=== PATIENT | female | born 1945 | race Caucasian/White ===

== ENCOUNTER 2016-05-21 09:38 | Day surgery (SDC) | payer MEDICARE ==
[2016-05-19 12:35] VITALS: BMI 21.6
[~2016-05-21 09:38] MED LIST: LACTATED RINGERS 1,000 ML IV SCH; LIDOCAINE 1% 20 ML VIAL (10MG/ML) FOR IV START INTRADERMA PRN
[2016-05-21 09:53] VITALS: RESP 16; TEMP 98.6
[2016-05-21] MEDS ORDERED: LIDOCAINE 1% INJ 10MG/ML (20 ML MDV) ONE (09:53)
[2016-05-21] MEDS ORDERED: PROPOFOL 10 MG/ML 20 ML VIAL IV ONE (09:53)
--- NOTE | 2016-05-21 10:10 | P.PCN ---
Date of Procedure: 05/21/16 Procedure(s) Performed: BRIEF HISTORY: Patient is a 68-year-old, pleasant, white female, scheduled for an upper endoscopy with a pyloric dilation for symptomatic pyloric stenosis. Her last upper endoscopy dilation was performed in December 2015. Lately she is been having abdominal bloating, early satiety but no nausea vomiting. PROCEDURE PERFORMED: Esophagogastroduodenoscopy with pyloric dilation. PREOPERATIVE DIAGNOSIS: Symptomatic pyloric stenosis. IV sedation per anesthesia. PROCEDURE: After informed consent was obtained, the patient was brought into the endoscopy unit. IV conscious sedation was administered by Anesthesia under continuous monitoring. Initially the Olympus GIF-140 video endoscope was inserted into the mouth. Esophagus intubated without any difficulty. It was gradually advanced into the stomach and carefully examined. There was tight pyloric stenosis noted and the scope could not be advanced to this area. At this time I used a 10-12 mm pyloric balloon and was gently advanced through the pylorus or the guidewire and initially was dilated to 10 mm and sequentially to 11 mm and up to 12 mm for total of 1-1/2 minutes. Following this there was some oozing with mucosal tear identified at the site of dilation. Despite this I was not able to advance the scope into the duodenum. However the bulb of the duodenum could be visualized and appeared normal. The scope at this time was withdrawn to the stomach, adequately insufflated with air, and upon careful examination, mucosa of the antrum, body, cardia and the fundus appeared normal. The scope was then withdrawn into the esophagus. Small hiatal hernia noted The GE junction was located at 39 cm from the incisors. The esophagus appeared normal. There were no erosions or ulcerations seen and the patient tolerated the procedure well. IMPRESSION: 1. Tight pyloric stenosis status post balloon dilation using an 11 and 12 mm TTS balloon as. 2. Small hiatal hernia. RECOMMENDATIONS: The findings of this examination were discussed with the patient as well as a family. She will be on a clear liquid diet today, continue Prilosec 20 mg twice daily and she'll be seen in the office in 6 months.
[2016-05-21] MEDS ORDERED: IV FLUID CONTINUATION 1,000 ML IV ONE (10:17)
[2016-05-21 10:55] VITALS: BP 157/59; PULSE 68
== END 2016-05-21 11:22 | disposition home or self-care (01) ==
LOC: ORWHC2ENDO 09:38
PROVIDERS: ATTEND Internal Medicine Gastroenterology
DX: K31.1 Adult hypertrophic pyloric stenosis (principal); K44.9 Diaphragmatic hernia without obstruction or gangrene; K21.9 Gastro-esophageal reflux disease without esophagitis; K27.9 Peptic ulcer, site unspecified, unspecified as acute or chronic, without hemorrhage or perforation; I10 Essential (primary) hypertension; E78.5 Hyperlipidemia, unspecified; Z79.899 Other long term (current) drug therapy; Z88.1 Allergy status to other antibiotic agents
CPT/HCPCS: 43245; J2001; J2704; C1727; 44799; 99153

== ENCOUNTER → 2016-05-27 | Outpatient (CLI) | payer MEDICARE ==
--- NOTE | 2016-05-28 11:51 | MM ---
Reason for exam: screening (asymptomatic). Last mammogram was performed 1 year ago. History: Patient is postmenopausal. Excisional biopsy of the right breast, 2001. Took estrogen for 11 years. Physical Findings: A clinical breast exam by your physician is recommended on an annual basis and results should be correlated with mammographic findings. MG Screening Mammo w CAD Bilateral CC and MLO view(s) were taken. Prior study comparison: May 23, 2015, bilateral MG screening mammo w CAD. May 12, 2014, bilateral MG screening mammo w CAD. The breast tissue is heterogeneously dense. This may lower the sensitivity of mammography. No significant changes when compared with prior studies. ASSESSMENT: Benign, BI-RAD 2 RECOMMENDATION: Routine screening mammogram of both breasts in 1 year.
== END | disposition home or self-care (01) ==
LOC: RADMAMWWP 12:31
PROVIDERS: ATTEND Internal Medicine
DX: Z12.31 Encounter for screening mammogram for malignant neoplasm of breast (principal)

== ENCOUNTER → 2016-10-15 | Outpatient (CLI) | payer MEDICARE ==
--- NOTE | 2016-10-15 14:04 | BD ---
EXAMINATION TYPE: MG DEXA axial skeleton. DATE OF EXAM: 10/15/2016 CLINICAL HISTORY: Disorder of bone density structure per order. COMPARISON: DEXA bone scan May 12, 2014. Height: 63.5 Weight: 132 pounds FRAX RISK QUESTIONS: Alcohol (3 or more units per day): no Family History (Parent hip fracture): no Glucocorticoids (More than 3mos): no (Ex: prednisone, prednisolone, methylprednisolone, dexamethasone, and hydrocortisone). History of Fracture in Adulthood: no Secondary Osteoporosis: 1. Type 1 Diabetes: no 2. Hyperthyroidism: no 3. Menopause before 45: no 4. Malnutrition: no 5. Chronic liver disease: no Rheumatoid Arthritis: no Current Tobacco Use: no RISK FACTORS HISTORY OF: Surgery to Spine: yes When: June 2016 Family History of Osteoporosis: no Drink Alcohol: once & a while Active: yes Diet low in dairy products/other sources of calcium: no Postmenopausal woman: yes, menopause/hysterectomy age 45 Take estrogen and/or progesterone medications: not now How long: about 11 years Lost more than 2 inches in height since high school: states that at one time was 66 inches tall Frequent falls: no Poor Health: no Hyperparathyroidism: no Adrenal Insufficiency: no MEDICATIONS: Prednisone or other steroids: no Thyroid Medications: no Osteoporosis Medications: no Additional Medications: cholesterol meds EXAM MEASUREMENTS: Bone mineral densitometry was performed using the [employer] System. Bone mineral density NOT measured about the Lumbar spine because of lower back surgery & presence o f metal kade Bone mineral density about the R hip (g/cm2): 0.882 Bone mineral density about the L hip (g/cm2): 0.850 T Score values are as follows: -----R Neck: -1.1 -----L Neck: -1.3 -----R Total: -0.7 -----L Total: -0.7 Bone mineral density has: Decreased -2.9% since study of: 05/12/2014 IMPRESSION: Osteopenia (T Score between -2.5 and -1 as noted by T score values at femoral neck in bilateral hips is now present. Bone density is decreased or diminished from prior. There remains slightly increase d risk of fracture and the patient may be considered for treatment. Re-Screen 2-5 years. NOTE: T-SCORE=SD OF THE YOUNG ADULT MEAN.
== END | disposition home or self-care (01) ==
LOC: RADBDWWP 12:40
PROVIDERS: ATTEND Internal Medicine
DX: M85.80 Other specified disorders of bone density and structure, unspecified site (principal)
CPT/HCPCS: 77080

== ENCOUNTER → 2017-06-08 | Outpatient (CLI) | payer MEDICARE ==
--- NOTE | 2017-06-10 07:38 | MM ---
Reason for exam: screening (asymptomatic). Last mammogram was performed 1 year ago. History: Patient is postmenopausal. Excisional biopsy of the right breast, 2001. Took estrogen for 11 years. Physical Findings: A clinical breast exam by your physician is recommended on an annual basis and results should be correlated with mammographic findings. MG Screening Mammo w CAD Bilateral CC and MLO view(s) were taken. Prior study comparison: May 27, 2016, bilateral MG screening mammo w CAD. May 23, 2015, bilateral MG screening mammo w CAD. The breast tissue is extremely dense which could obscure a lesion on mammography. Finding: There are typically benign diffuse/scattered calcifications in both breasts. No suspicious abnormality. ASSESSMENT: Benign, BI-RAD 2 RECOMMENDATION: Routine screening mammogram of both breasts in 1 year.
== END | disposition home or self-care (01) ==
LOC: RADMAMWWP 12:13
PROVIDERS: ATTEND Internal Medicine
DX: Z12.31 Encounter for screening mammogram for malignant neoplasm of breast (principal)
CPT/HCPCS: 77067

== ENCOUNTER → 2018-06-18 | Outpatient (CLI) | payer MEDICARE ==
--- NOTE | 2018-06-22 09:28 | MM ---
Reason for exam: screening (asymptomatic). Last mammogram was performed 1 year ago. History: Patient is postmenopausal. Excisional biopsy of the right breast, 2001. Took estrogen for 11 years. Physical Findings: A clinical breast exam by your physician is recommended on an annual basis and results should be correlated with mammographic findings. MG Screening Mammo w CAD Bilateral CC and MLO view(s) were taken. Prior study comparison: June 08, 2017, bilateral MG screening mammo w CAD. May 27, 2016, bilateral MG screening mammo w CAD. The breast tissue is heterogeneously dense. This may lower the sensitivity of mammography. Benign bilateral oil cysts. No significant changes when compared with prior studies. ASSESSMENT: Benign, BI-RAD 2 RECOMMENDATION: Routine screening mammogram of both breasts in 1 year.
== END | disposition home or self-care (01) ==
LOC: RADMAMWWP 12:59
PROVIDERS: ATTEND Internal Medicine
DX: Z12.31 Encounter for screening mammogram for malignant neoplasm of breast (principal)
CPT/HCPCS: 77067

== ENCOUNTER → 2019-06-23 | Outpatient (CLI) | payer MEDICARE ==
--- NOTE | 2019-06-27 10:27 | MM ---
Reason for exam: screening (asymptomatic). Last mammogram was performed 1 year ago. History: Patient is postmenopausal. Excisional biopsy of the right breast, 2001. Took estrogen for 11 years. Physical Findings: A clinical breast exam by your physician is recommended on an annual basis and results should be correlated with mammographic findings. MG Screening Mammo w CAD Bilateral CC and MLO view(s) were taken. Prior study comparison: June 18, 2018, bilateral MG screening mammo w CAD. June 08, 2017, bilateral MG screening mammo w CAD. The breast tissue is extremely dense which could obscure a lesion on mammography. No significant changes when compared with prior studies. ASSESSMENT: Benign, BI-RAD 2 RECOMMENDATION: Routine screening mammogram of both breasts in 1 year.
== END | disposition home or self-care (01) ==
LOC: RADMAMWWP 13:13
PROVIDERS: ATTEND Internal Medicine
DX: Z12.31 Encounter for screening mammogram for malignant neoplasm of breast (principal)
CPT/HCPCS: 77067

== ENCOUNTER → 2020-08-21 | Outpatient (CLI) | payer MEDICARE ==
--- NOTE | 2020-08-21 17:44 | BD ---
EXAMINATION TYPE: Axial Bone Density DATE OF EXAM: 08/21/2020 COMPARISON: 10/15/2016 CLINICAL HISTORY: Postmenopausal screening Height: 5 FT 4 IN Weight: 133 FRAX RISK QUESTIONS: Alcohol (3 or more units per day): NO Family History (Parent hip fracture): NO Glucocorticoids (More than 3mos): NO (Ex: prednisone, prednisolone, methylprednisolone, dexamethasone, and hydrocortisone). History of Fracture in Adulthood: NO Secondary Osteoporosis: 1. Type 1 Diabetes: NO 2. Hyperthyroidism: NO 3. Menopause before 45: NO 4. Malnutrition: NO 5. Chronic liver disease: NO Rheumatoid Arthritis: NO Current Tobacco Use: NO RISK FACTORS HISTORY OF: Surgery to Spine/Hip(right/left)/Wrist (right/left): LUMBAR SURG When: 2017 Family History of Osteoporosis: NO Active: YES Diet low in dairy products/other sources of calcium: NO Postmenopausal woman: AGE 45 Take estrogen and/or progesterone medications: TOOK HRT FOR A SHORT TIME AFTER HYST Lost more than 2 inches in height since high school: NO MEDICATIONS: Additional Medications: IRON, VIT D, OCUVITE, BABY ASPIRIN, HYDRALAZINE, ATENOLOL, LOSARTAN, OMEPRAZO LE, SIMVASTATIN Additional History: EXAM MEASUREMENTS: Bone mineral density about the R hip (g/cm2): 0.937 Bone mineral density about the L hip (g/cm2): 0.821 T Score values are as follows: -----R Neck: -0.7 -----L Neck: -1.6 -----R Total: -0.5 -----L Total: -1.0 Bone mineral density has: NO CHANGE % since study of: 2016 Bone mineral density about the L Wrist (g/cm2): 0.587 T Score values are as follows: -----Dist. R+U: -2.0 -----Prox. R+U: -0.8 -----Radius total: -1.5 FIRST TIME WRIST HAS BEEN DONE IMPRESSION: Osteopenia (T Score between -2.5 and -1). There is slightly increased risk of fracture and the patient may be considered for treatment. Re-Screen 2-5 years. NOTE: T-SCORE=SD OF THE YOUNG ADULT MEAN.
--- NOTE | 2020-08-22 09:25 | MM ---
Reason for exam: screening (asymptomatic). Last mammogram was performed 1 year and 2 months ago. History: Patient is postmenopausal. Excisional biopsy of the right breast, 2001. Took estrogen for 11 years. Physical Findings: A clinical breast exam by your physician is recommended on an annual basis and results should be correlated with mammographic findings. MG 3D Screening Mammo W/Cad Bilateral CC and MLO view(s) were taken. Prior study comparison: June 23, 2019, bilateral MG screening mammo w CAD. June 18, 2018, bilateral MG screening mammo w CAD. The breast tissue is extremely dense which could obscure a lesion on mammography. Stable benign calcifications. There is no discrete abnormality. No significant changes when compared with prior studies. ASSESSMENT: Benign, BI-RAD 2 RECOMMENDATION: Routine screening mammogram of both breasts in 1 year.
== END | disposition home or self-care (01) ==
LOC: RADMAMWWP 15:03
PROVIDERS: ATTEND Internal Medicine
DX: Z12.31 Encounter for screening mammogram for malignant neoplasm of breast (principal); M85.80 Other specified disorders of bone density and structure, unspecified site; Z78.0 Asymptomatic menopausal state
CPT/HCPCS: 77063; 77067; 77080

== ENCOUNTER 2023-12-25 10:00 | Day surgery (SDC) | payer MEDICARE ==
[2023-12-25] MEDS ORDERED: LACTATED RINGERS 1,000 ML BAG ONE (11:40)
[2023-12-25] MEDS ORDERED: PROPOFOL 10 MG/ML 20 ML VIAL IV ONE (11:44)
[2023-12-25] MEDS ORDERED: LIDOCAINE HCL/PF 20 MG/ML 10 ML AMP ONE (11:44)
--- NOTE | 2023-12-25 15:58 | PCN ---
PROCEDURE NOTE REQUESTING PHYSICIAN: Dr. Kathy Stahl. BRIEF HISTORY: The patient is an 78-year-old pleasant white female scheduled for an elective upper endoscopy with possible dilation as a part of evaluation of symptomatic pyloric stenosis. The patient was diagnosed with pyloric stenosis approximately 15 years ago and her last EGD with dilation was performed in May of 2016. For the last 6 months, she has been having epigastric discomfort with early satiety and intermittent nausea and vomiting and hence she is scheduled for an upper endoscopy. DESCRIPTION OF PROCEDURE: The Olympus CF-180 video endoscope was inserted in the mouth and esophagus intubated without any difficulty and was gradually advanced into the stomach. There was tight pyloric stenosis identified. I was not able to advance the scope through the pylorus. The luminal diameter was less than 5 mm. At this time, I proceeded with balloon dilation of the pylorus initially with 10 mm balloon, subsequently to 11 and 12 mm balloon in a sequential fashion for 60 seconds. Following the dilation, there was some mucosal oozing at the site of dilation, but despite multiple attempts, I was not able to advance the scope into the duodenum. The stomach was adequately insufflated with air and upon careful examination mucosa of antral body, cardia, and fundus appeared normal. Scope was then withdrawn through the esophagus. The GE junction was located at 38 cm from the incisors, small hiatal hernia noted. Rest of the esophagus appeared normal and the patient tolerated procedure well. IMPRESSION: 1. Tight pyloric stenosis, status post balloon dilation using 10, 11, and 12 mm TTS balloon for 60 seconds. 2. Small hiatal hernia. RECOMMENDATIONS: Findings of this examination were discussed with the patient as well as the family, she was advised to follow up with. She was advised to be on a clear liquid diet for 2 hours. Continue with current medications. Continue with small frequent meals. Follow up in office in 3-4 weeks. MMODL / IJN: [id number] /
== END 2023-12-25 12:30 ==
LOC: ORWHC2ENDO 10:00
PROVIDERS: ATTEND Internal Medicine Gastroenterology
DX: K44.9 Diaphragmatic hernia without obstruction or gangrene (principal); K31.1 Adult hypertrophic pyloric stenosis; I10 Essential (primary) hypertension; E78.5 Hyperlipidemia, unspecified; E11.9 Type 2 diabetes mellitus without complications; K21.9 Gastro-esophageal reflux disease without esophagitis; I34.1 Nonrheumatic mitral (valve) prolapse; Z88.1 Allergy status to other antibiotic agents; Z79.84 Long term (current) use of oral hypoglycemic drugs; Z79.899 Other long term (current) drug therapy
CPT/HCPCS: 43245